=== PATIENT | female | born 1965 | race Caucasian/White ===

== ENCOUNTER 2017-05-14 08:57 | Emergency (ER) | payer BC ==
[2017-05-14] MEDS ORDERED: Ondansetron INJ* 2 MG/ML VIAL IV ONE (09:07)
[2017-05-14] MEDS ORDERED: NS 0.9% 1000 ML* 1,000 ML IV ONE (09:07)
[2017-05-14] MEDS ORDERED: Morphine INJ* 4 MG/ML 1 ML SYRINGE IV ONE (09:07)
[2017-05-14] MEDS ORDERED: fentaNYL* 50 MCG/ML 2 ML VIAL (100 MCG VIAL) IV SLOW PU ONE (09:30)
[2017-05-14 09:32] LABS: Hematocrit 46 % (35-47); Hemoglobin 14.8 g/dl (12.0-16.0); Mean Corpuscular HGB Conc 32 g/dl (31-36); Mean Corpuscular Hemoglobin 29 pg (27-31); Mean Corpuscular Volume 90 fL (80-97); Mean Platelet Volume 9 um3 (7.4-10.4); Red Blood Count 5.15 10^6/ul (4.0-5.4); Red Cell Distribution Width 14 % (10.5-15); White Blood Count 7.8 10^3/ul (3.5-10.8)
[2017-05-14 09:39] LABS: Albumin 4.2 g/dL (3.2-5.2); C Reactive Protein 9.92 mg/L (< 5.00); Calcium 9.5 mg/dL (8.6-10.3); EGFR African American 74.6 (>60); Globulin 3.2 g/dL (2-4); Potassium 3.9 mmol/L (3.5-5.0); Total Bilirubin 0.6 mg/dL (0.2-1.0); Total Protein 7.4 g/dL (6.4-8.9)
[2017-05-14 09:43] LABS: Urine Bacteria Absent (Absent); Urine Bilirubin Negative (Negative); Urine Glucose Negative (Negative); Urine Nitrite Negative (Negative)
[2017-05-14] MEDS ORDERED: Ketorolac INJ* 30 MG/ML 1 ML VIAL IV PUSH ONE (10:08)
--- NOTE | 2017-05-14 10:17 | RAD ---
Indication: Right-sided pelvic pain. Real-time sonography of the pelvis was performed utilizing endovaginal technique. The uterus measures 7.3 x 4.3 x 5.0 cm. Endometrial echoes are unremarkable. Intrauterine device is in place. Right ovary measures 3.3 x 1.7 x 2.5 cm. Left ovary measures 2.7 x 1.5 x 1.4 cm. Doppler interrogation demonstrates flow in both ovaries. IMPRESSION: No adnexal masses are noted. Intrauterine device is in place. No adnexal masses are noted.
[2017-05-14] MEDS ORDERED: Iodixanol* (CONTRAST) 320 MG/ML 100 ML SDV IV ONE (10:39)
--- NOTE | 2017-05-14 11:37 | RAD ---
Indication: Right lower quadrant pain. Contrast: Administered 116.2 ml of VISIPAQUE 320 mg/ml CT of the abdomen and pelvis was performed after IV contrast administration. Coronal and sagittal reconstructed images were obtained. Lung bases demonstrate no pleural fluid, nodules or masses. Heart is normal size without evidence of pericardial effusion. Liver is normal in size. No focal lesions or intrahepatic ductal dilatation is noted. The gallbladder demonstrates no calcified gallstones. No pericholecystic fluid or wall thickening is noted. The pancreas demonstrates no mass or pancreatic ductal dilatation. The spleen is normal in size. No adrenal lesions are noted. The left kidney is unremarkable. The right kidney demonstrates right hydronephrosis. Periureteral and perinephric the left kidney demonstrates calcifications in the lower pole of left kidney however no definite obstruction is noted. Infiltration of fat with perinephric and periureteral fluid is noted suggestive of calyceal rupture. Moderate right hydroureter with a 2 mm calcification in the right ureterovesicular junction is noted. There is delay of excretion of the right kidney. No retroperitoneal lymphadenopathy is noted. No dilated loops of bowel are noted. The colon is filled with stool. Intrauterine device is in place. Urinary bladder is partially collapsed. Appendix is visualized and is normal. The bony structures are otherwise unremarkable. IMPRESSION: 2 mm calculi in the right ureterovesicular junction with moderate right hydroureter and right hydronephrosis with periureteral and perinephric fluid suggestive of calyceal rupture. There is delay of excretion of the right kidney. Normal appendix is documented.
[2017-05-14 13:07] VITALS: BP 139/71
--- NOTE | 2017-05-14 17:24 | ED ---
Kourtney Danielle Thomas, scribed for Carlos Manuel Conway MD on 05/14/17 at 0908 . Abdominal Pain/Female - HPI Summary HPI Summary: The pt is a 52 y/o F presenting to the ED c/o RLQ abd pain that began suddenly this AM. The pain does not radiate and the pain is rated 10/10. 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 Pt additionally c/o nausea. Pt denies vomiting. The pain began suddenly after the patient ate breakfast this AM. PMHx: glucose intolerance, PCOS (although no pain of this severity). PSHx: hardware in C5/C6, . SHx: no smoking, occasional alcohol, no illicit drugs. Yesterday, she had dull pain in her RLQ, but her pain yesterday was not as drastic as it is now. She occasionally menstruates and she has the Mirena IUD. - History of Current Complaint Stated Complaint: LOWER RT ABD PAIN Hx Obtained From: Patient, Family/Coordinator Cardiopulmonary Services - accompanied by Onset/Duration: Sudden Onset, Lasting Hours - this AM, Still Present Timing: Constant Severity Currently: Severe Pain Intensity: 10 Pain Scale Used: 0-10 Numeric Location: Discrete At: RLQ Radiates: No Aggravating Factor(s): Nothing Alleviating Factor(s): Nothing Associated Signs and Symptoms: Positive: Nausea. Negative: Vomiting Allergies/Adverse Reactions: Allergies Allergy/AdvReac Type Severity Reaction Status Date / Time Sulfa Antibiotics Allergy Rash Verified 05/14/17 09:22 PMH/Surg Hx/FS Hx/Imm Hx Previously Healthy: No Endocrine/Hematology History: Reports: Other Endocrine/Hematological Disorders - Hx glucose intolerance History: Reports: Other Problems/Disorders - Hx PCOS - Surgical History Surgery Procedure, Year, and Place: hardware in C5/C6, Infectious Disease History: Denies: Traveled Outside the [place] in Last 30 Days - Family History Known Family History: Positive: Other - when asked about her family history, the patient reported "nothing" - Social History Alcohol Use: Occasionally Hx Substance Use: No Substance Use Type: Reports: None Hx Tobacco Use: No Smoking Status (MU): Never Smoked Tobacco Review of Systems Constitutional: Negative Negative: Fever Positive: Abdominal Pain - RLQ, 10/10, sudden onset this AM, Nausea. Negative: Vomiting All Other Systems Reviewed And Are Negative: Yes Physical Exam - Summary Physical Exam Summary: VITAL SIGNS: Reviewed. GENERAL: Patient is a well-developed and nourished female who is lying comfortable in the stretcher. ~Patient is not in any acute respiratory distress. HEAD AND FACE: Normocephalic and atraumatic. EYES: PERRLA, EOMI x 2, No injected conjunctiva. EARS: Hearing grossly intact. Ear canals and tympanic membranes are WNL. MOUTH: Oropharynx within normal limits. NECK: Supple, trachea is midline, no adenopathy, no JVD. CHEST: Symmetric, no tenderness at palpation LUNGS: Clear to auscultation bilaterally. No wheezing or crackles. CVS: RRR, S1 and S2 present, no murmurs or gallops appreciated. ABDOMEN: There is RLQ tenderness. Soft, no signs of distention. Positive bowel sounds. No rebound no guarding, and no masses palpated. No abdominal bruit or pulsations. EXTREMITIES: FROM in all major joints, no edema, no cyanosis or clubbing. NEURO: Alert and oriented x 3. No acute neurological deficits. Speech is normal. SKIN: Dry and warm Triage Information Reviewed: Yes Vital Signs On Initial Exam: Initial Vitals Temp Pulse Resp BP Pulse Ox 98.0 F 82 24 155/102 100 05/14/17 08:58 05/14/17 08:58 05/14/17 08:58 05/14/17 08:58 05/14/17 08:58 Vital Signs Reviewed: Yes Diagnostics - Vital Signs Vital Signs Temp Pulse Resp BP Pulse Ox 05/14/17 08:58 98.0 F 82 24 155/102 100 - Laboratory Lab Results: Lab Results 05/14/17 05/14/17 05/14/17 Range/Units 09:07 09:07 09:07 WBC 7.8 (3.5-10.8) 10^3/ul RBC 5.15 (4.0-5.4) 10^6/ul Hgb 14.8 (12.0-16.0) g/dl Hct 46 (35-47) % MCV 90 (80-97) fL MCH 29 (27-31) pg MCHC 32 (31-36) g/dl RDW 14 (10.5-15) % Plt Count 243 (150-450) 10^3/ul MPV 9 (7.4-10.4) um3 Neut % (Auto) 70.2 (38-83) % Lymph % (Auto) 18.0 L (25-47) % Bulloch % (Auto) 9.8 H (1-9) % Eos % (Auto) 1.0 (0-6) % Baso % (Auto) 1.0 (0-2) % Absolute Neuts (auto) 5.5 (1.5-7.7) 10^3/ul Absolute Lymphs (auto) 1.4 (1.0-4.8) 10^3/ul Absolute Monos (auto) 0.8 (0-0.8) 10^3/ul Absolute Eos (auto) 0.1 (0-0.6) 10^3/ul Absolute Basos (auto) 0.1 (0-0.2) 10^3/ul Absolute Nucleated RBC 0 10^3/ul Nucleated RBC % 0 Sodium 136 (133-145) mmol/L Potassium 3.9 (3.5-5.0) mmol/L Chloride 106 (101-111) mmol/L Carbon Dioxide 23 (22-32) mmol/L Anion Gap 7 (2-11) mmol/L BUN 15 (6-24) mg/dL Creatinine 1.00 H (0.51-0.95) mg/dL Est GFR ( Amer) 74.6 (>60) Est GFR (Non-Af Amer) 58.0 (>60) BUN/Creatinine Ratio 15.0 (8-20) Glucose 135 H (70-100) mg/dL Lactic Acid 2.0 (0.5-2.0) mmol/L Calcium 9.5 (8.6-10.3) mg/dL Total Bilirubin 0.60 (0.2-1.0) mg/dL AST 15 (13-39) U/L ALT 13 (7-52) U/L Alkaline Phosphatase 61 (34-104) U/L C-Reactive Protein 9.92 H (< 5.00) mg/L Total Protein 7.4 (6.4-8.9) g/dL Albumin 4.2 (3.2-5.2) g/dL Globulin 3.2 (2-4) g/dL Albumin/Globulin Ratio 1.3 (1-3) Lipase 46 (11.0-82.0) U/L Beta HCG, Quant 0.71 mIU/mL Urine Color Urine Appearance Urine pH (5-9) Ur Specific [place] (1.010-1.030) Urine Protein (Negative) Urine Ketones (Negative) Urine Blood (Negative) Urine Nitrate (Negative) Urine Bilirubin (Negative) Urine Urobilinogen (Negative) Ur Leukocyte Esterase (Negative) Urine WBC (Auto) (Absent) Urine RBC (Auto) (Absent) Ur Squamous Epith Cells (Absent) Urine Bacteria (Absent) Urine Glucose (Negative) Urine Ascorbic Acid (Negative) 05/14/17 Range/Units 09:30 WBC (3.5-10.8) 10^3/ul RBC (4.0-5.4) 10^6/ul Hgb (12.0-16.0) g/dl Hct (35-47) % MCV (80-97) fL MCH (27-31) pg MCHC (31-36) g/dl RDW (10.5-15) % Plt Count (150-450) 10^3/ul MPV (7.4-10.4) um3 Neut % (Auto) (38-83) % Lymph % (Auto) (25-47) % Bulloch % (Auto) (1-9) % Eos % (Auto) (0-6) % Baso % (Auto) (0-2) % Absolute Neuts (auto) (1.5-7.7) 10^3/ul Absolute Lymphs (auto) (1.0-4.8) 10^3/ul Absolute Monos (auto) (0-0.8) 10^3/ul Absolute Eos (auto) (0-0.6) 10^3/ul Absolute Basos (auto) (0-0.2) 10^3/ul Absolute Nucleated RBC 10^3/ul Nucleated RBC % Sodium (133-145) mmol/L Potassium (3.5-5.0) mmol/L Chloride (101-111) mmol/L Carbon Dioxide (22-32) mmol/L Anion Gap (2-11) mmol/L BUN (6-24) mg/dL Creatinine (0.51-0.95) mg/dL Est GFR ( Amer) (>60) Est GFR (Non-Af Amer) (>60) BUN/Creatinine Ratio (8-20) Glucose (70-100) mg/dL Lactic Acid (0.5-2.0) mmol/L Calcium (8.6-10.3) mg/dL Total Bilirubin (0.2-1.0) mg/dL AST (13-39) U/L ALT (7-52) U/L Alkaline Phosphatase (34-104) U/L C-Reactive Protein (< 5.00) mg/L Total Protein (6.4-8.9) g/dL Albumin (3.2-5.2) g/dL Globulin (2-4) g/dL Albumin/Globulin Ratio (1-3) Lipase (11.0-82.0) U/L Beta HCG, Quant mIU/mL Urine Color Yellow Urine Appearance Cloudy Urine pH 6.0 (5-9) Ur Specific [place] 1.013 (1.010-1.030) Urine Protein Negative (Negative) Urine Ketones Negative (Negative) Urine Blood Negative (Negative) Urine Nitrate Negative (Negative) Urine Bilirubin Negative (Negative) Urine Urobilinogen Negative (Negative) Ur Leukocyte Esterase Trace H (Negative) Urine WBC (Auto) Trace(0-5/hpf) (Absent) Urine RBC (Auto) Absent (Absent) Ur Squamous Epith Cells Present H (Absent) Urine Bacteria Absent (Absent) Urine Glucose Negative (Negative) Urine Ascorbic Acid * H (Negative) Result Diagrams: 05/14/17 09:07 05/14/17 09:07 Lab Statement: Any lab studies that have been ordered have been reviewed, and results considered in the medical decision making process. - CT CT Abd/Pel CT Interpretation: Positive (See Comments) - 2 mm calculi in the right ureterovesicular junction with moderate right hydroureter and right hydronephrosis with periureteral and perinephric fluid suggestive of calyceal rupture. There is delay of excretion of the right kidney. Normal appendix is documented. CT Interpretation Completed By: Radiologist - Additional Comments Diagnostic Additional Comments: US Transvaginal. Interpreted by radiologist. Impression: No adnexal masses are noted. Intrauterine device is in place. No adnexal masses are noted. Abdominal Pain Fem Course/Dx - Course Course Of Treatment: The pt is a 52 y/o F presenting to the ED c/o RLQ abd pain that began suddenly this AM. The pain does not radiate and the pain is rated 10/ 10. 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 Pt additionally c/o nausea. Pt denies vomiting. The pain began suddenly after the patient ate breakfast this AM. PMHx : glucose intolerance, PCOS (although no pain of this severity). PSHx: hardware in C5/C6, . SHx: no smoking, occasional alcohol, no illicit drugs. Yesterday, she had dull pain in her RLQ, but her pain yesterday was not as drastic as it is now. She occasionally menstruates and she has the Mirena IUD. Test results are without significant abnormality. Initially, the patient came into the ED screaming because of pain in her RUQ. The patient has a history of PCOS; therefore, I obtained IV access. The patient was given morphine and requested an US Pelvic/Transvaginal. The tests results were negative for acute pathology. The patient was still in severe pain, so I gave her fentanyl for her pain. I did a CT Abd/Pel to rule out appendicitis, ruptured disc, and kidney stones. The patient was given Toradol for the pain and the symptoms improved. CT Abd/Pel shows that the patient has a 2mm ureter calculus. After the patient was given medication, the patient is stable and her pain was decreasing. The patient was able to ambulate. Therefore, I will discharge the patient home with follow up from her PCP and urology. She requested a note for work. I discussed all the findings and test results with the patient. Patient was instructed to return to the emergency room immediately if any of the symptoms return or worsens. Plan of care was discussed with the patient and understands and agrees. All questions were answered at patient satisfaction. There were no further complaints or concerns. - Diagnoses Differential Diagnosis: Positive: Appendicitis, Bowel Obstruction, Constipation , Diverticulitis, Ectopic , Ovarian Cyst, , Renal Colic, Urinary Tract Infection Provider Diagnoses: Kidney stones Discharge - Discharge Plan Condition: Stable Disposition: HOME Prescriptions: Ketorolac TAB * [Toradol TAB *] 10 mg PO TID PRN #9 tab PRN Reason: Pain oxyCODONE/Acetamin 5/325 MG* [Percocet 5/325 TAB*] 1 tab PO Q6H PRN #12 tab MDD 4 PRN Reason: Pain Patient Education Materials: Kidney Stones (ED) Forms: *Work Release Referrals: Mary Ellen Woody NP [Primary Care Provider] - 3 Days Dionisio An MD [Medical Doctor] - 3 Days The documentation as recorded by the Kourtney bonilla Thomas accurately reflects the service I personally performed and the decisions made by Man reyes Walter, MD.
== END 2017-05-14 13:11 | disposition home or self-care (01) ==
LOC: ED 08:57
DX: N20.0 Calculus of kidney (principal); R10.31 Right lower quadrant pain
CPT/HCPCS: 36415; 74177; 76830; 80053; 81003; 81015; 83605; 83690; 84702; 85025; 86140; 87086; 96374; 96375; 99283; J1885; J2270; J2405; J3010; Q9967

== ENCOUNTER 2019-06-01 12:35 | Emergency (ER) | payer BC ==
--- NOTE | 2019-06-01 14:49 | UC ---
Lower Extremity/Ankle HPI - HPI Summary HPI Summary: 54 yo female with right montrell lateral leg pain and swelling x 3-4 weeks no trauma worse when standing non smoker no recent trips leg not red or warm no hx dvt or pe patient desires to have a DVT ruled out - History of Current Complaint Chief Complaint: UCLowerExtremity Stated Complaint: LEG COMPLAINT POSSIBLE DVT Time Seen by Provider: 06/01/19 14:34 Hx From Patient Unobtainable Due To: Dementia Onset/Duration: Gradual Onset, Lasting Weeks Severity Initially: Mild Severity Currently: Mild Pain Intensity: 2 Pain Scale Used: 0-10 Numeric Aggravating Factor(s): Standing, Ambulation Alleviating Factor(s): Rest Able to Bear Weight: Yes - Allergies/Home Medications Allergies/Adverse Reactions: Allergies Allergy/AdvReac Type Severity Reaction Status Date / Time MS Sulfa Antibiotics Allergy Rash Verified 05/14/17 09:22 [Sulfa Antibiotics] Sulfa (Sulfonamide Allergy Rash Verified 06/01/19 13:02 Antibiotics) adhesives Allergy Rash Uncoded 06/01/19 13:02 PMH/Surg Hx/FS Hx/Imm Hx Previously Healthy: Yes Cardiovascular History: Hypertension - Surgical History Surgical History: Yes Surgery Procedure, Year, and Place: neck surgery - Family History Known Family History: Positive: Other - when asked about her family history, the patient reported "nothing" - Social History Alcohol Use: Occasionally Substance Use Type: None Smoking Status (MU): Never Smoked Tobacco Review of Systems All Other Systems Reviewed And Are Negative: Yes Constitutional: Positive: Negative Skin: Positive: Negative Eyes: Positive: Negative ENT: Positive: Negative Respiratory: Positive: Negative Cardiovascular: Positive: Negative Gastrointestinal: Positive: Negative Genitourinary: Positive: Negative Motor: Positive: Negative Neurovascular: Positive: Negative Musculoskeletal: Positive: Myalgia - right lower leg Neurological: Positive: Negative Psychological: Positive: Negative Physical Exam Triage Information Reviewed: Yes Appearance: Well-Appearing, No Pain Distress, Well-Nourished Vital Signs: Initial Vital Signs Temp 98 F 06/01/19 12:58 Pulse 84 06/01/19 12:58 Resp 17 06/01/19 12:58 BP 140/86 06/01/19 12:58 Pulse Ox 100 06/01/19 12:58 Eyes: Positive: Conjunctiva Clear ENT: Positive: Hearing grossly normal. Negative: Nasal congestion, Nasal drainage, Trismus, Muffled voice, Hoarse voice Neck: Positive: Supple, Nontender Respiratory: Positive: Lungs clear, Normal breath sounds, No respiratory distress Cardiovascular: Positive: RRR, No Murmur Musculoskeletal: Positive: ROM Intact, Other: - see image Neurological: Positive: Alert Skin Exam: Normal Images Feet (Multiple View): 1 - edema (firm) not red or warm Diagnostics - Radiology No standard instances Radiology Interpretation Completed By: Radiologist Summary of Radiographic Findings: venous doppler- NEGATIVE Lower Extremity Course/Dx - Differential Dx/Diagnosis Provider Diagnosis: Leg edema, right Discharge ED - Sign-Out/Discharge Documenting (check all that apply): Patient Departure All imaging exams completed and their final reports reviewed: Yes - Discharge Plan Condition: Stable Disposition: HOME Patient Education Materials: Leg Edema (ED) Referrals: Mary Ellen Woody NP [Primary Care Provider] - 1 Week Additional Instructions: NO DVT ON U/S - Billing Disposition and Condition Condition: STABLE Disposition: Home
[2019-06-01 15:16] VITALS: BP 147/85
== END 2019-06-01 16:00 | disposition home or self-care (01) ==
LOC: UCEAST 12:35
DX: M79.604 Pain in right leg (principal); R60.9 Edema, unspecified; I10 Essential (primary) hypertension; Z88.2 Allergy status to sulfonamides
CPT/HCPCS: 99212; G0463

== ENCOUNTER 2019-07-23 14:08 | Emergency (ER) | payer BC ==
[2019-07-23 14:40] VITALS: BP 123/78
--- NOTE | 2019-07-23 15:00 | UC ---
Ear Complaint HPI - HPI Summary HPI Summary: Patient is a 54-year-old female with a 4 week history of sinus pressure and pain. She has been taking Sudafed for her symptoms. She has had right ear pain for 2 weeks. Her ear pain is increasing and she has decreased hearing in that ear. She denies any fever or chills. She denies any chest pain or shortness of breath. She has some postnasal drip. She has had no ear problems as noted. - History of Current Complaint Chief Complaint: UCEar Stated Complaint: EAR ACHE Time Seen by Provider: 07/23/19 14:46 Hx Obtained From: Patient Onset/Duration: Gradual Onset, Lasting Weeks Severity Initially: Moderate Severity Currently: Moderate Pain Intensity: 5 Pain Scale Used: 0-10 Numeric Associated Signs/Symptoms: Positive: Hearing Loss, URI Symptoms - Allergies/Home Medications Allergies/Adverse Reactions: Allergies Allergy/AdvReac Type Severity Reaction Status Date / Time Sulfa (Sulfonamide Allergy Rash Verified 07/23/19 14:40 Antibiotics) adhesives Allergy Rash Uncoded 07/23/19 14:40 Home Medications: Home Medications Chlorthalidone TAB* [Hygroton TAB*] 25 mg PO DAILY 07/23/19 [History Confirmed 07/23/19] Progesterone MICRONIZED(NF) [Progesterone] 200 mg PO DAILY 07/23/19 [History Confirmed 07/23/19] Vitamin B Complex [Super B-50 Complex] 1 tab PO DAILY 07/23/19 [History Confirmed 07/23/19] PMH/Surg Hx/FS Hx/Imm Hx Previously Healthy: Yes Cardiovascular History: Hypertension - Surgical History Surgical History: Yes Surgery Procedure, Year, and Place: neck surgery - Family History Known Family History: Positive: Hypertension - Social History Alcohol Use: Occasionally Substance Use Type: None Smoking Status (MU): Never Smoked Tobacco Review of Systems All Other Systems Reviewed And Are Negative: Yes Constitutional: Positive: Negative Skin: Positive: Negative Eyes: Positive: Negative ENT: Positive: Ear Ache - R, Nasal Discharge, Sinus Congestion, Sinus Pain/ Tenderness Respiratory: Positive: Negative Cardiovascular: Positive: Negative Gastrointestinal: Positive: Negative Genitourinary: Positive: Negative Motor: Positive: Negative Neurovascular: Positive: Negative Musculoskeletal: Positive: Negative Neurological: Positive: Negative Psychological: Positive: Negative Physical Exam Triage Information Reviewed: Yes Appearance: Well-Appearing, No Pain Distress, Well-Nourished Vital Signs: Initial Vital Signs Temp 99.0 F 07/23/19 14:35 Pulse 99 07/23/19 14:35 Resp 16 07/23/19 14:35 BP 123/78 07/23/19 14:35 Pulse Ox 98 07/23/19 14:35 Vital Signs Reviewed: Yes Eyes: Positive: Conjunctiva Clear ENT: Positive: TM bulging - R, TM dull - R, Sinus tenderness - L>R max, Uvula midline. Negative: Hearing grossly normal - decreased hearing right ear, Nasal congestion, Nasal drainage, Tonsillar swelling, Tonsillar exudate, Trismus, Muffled voice, Hoarse voice Neck: Positive: Supple, Nontender, No Lymphadenopathy Respiratory: Positive: Lungs clear, Normal breath sounds, No respiratory distress, No accessory muscle use Cardiovascular: Positive: RRR, No Murmur Musculoskeletal: Positive: ROM Intact, No Edema Ear Complaint Course/Dx - Differential Dx/Diagnosis Provider Diagnosis: Acute sinusitis with symptoms greater than 10 days, Right serous otitis media Discharge ED - Sign-Out/Discharge Documenting (check all that apply): Patient Departure All imaging exams completed and their final reports reviewed: No Studies - Discharge Plan Condition: Stable Disposition: HOME Prescriptions: Amoxicillin PO (*) [Amoxicillin 875 MG (*)] 875 mg PO BID #14 tab Patient Education Materials: Sinusitis (ED), Serous Otitis Media (ED) Referrals: Rd Jeffrey MD [Medical Doctor] - 2 Weeks (call for appt if hearing not back to normal after 2 weeks) Additional Instructions: saline nasal spray 2 sprays each nostril twice daily Flonase 2 sprays each nostril about 5 minutes after using the saline warm facial compresses Call for ENT appt if hearing not back to normal in 2 weeks - Billing Disposition and Condition Condition: STABLE Disposition: Home
== END 2019-07-23 15:05 | disposition home or self-care (01) ==
LOC: UCEAST 14:08
DX: J01.90 Acute sinusitis, unspecified (principal); H65.91 Unspecified nonsuppurative otitis media, right ear; Z88.2 Allergy status to sulfonamides; Z91.09 Other allergy status, other than to drugs and biological substances
CPT/HCPCS: 99212; G0463